=== PATIENT | female | born 1955 | race Caucasian/White ===

== ENCOUNTER → 2023-10-31 17:14 | Outpatient (REF) | payer MEDICARE, OTHER, SELFPAY | LOC: PAVMRI 17:14 | PROVIDERS: ATTENDING PHYSICIAN Physician Assistant Surgical; FAMILY PHYSICIAN Internal Medicine | DX: M54.12 Radiculopathy, cervical region (principal); M75.102 Unspecified rotator cuff tear or rupture of left shoulder, not specified as traumatic | CPT/HCPCS: 72141; 73221 ==